=== PATIENT | male | born 1940 | race Caucasian/White ===

== ENCOUNTER 2022-01-01 14:45 | Inpatient (IN) | payer MEDICARE ==
[~2022-01-01] VITALS: Ht 170.2 cm; Wt 79.4 kg
--- NOTE | 2022-01-01 15:00 | NUR ---
BIB OPERATOR MAINTAINER FROM FACILITY,"ALTERED MENTAL STATUS AND POSSIBLE UTI", "HAS A WOUND ON THE HEAD" DUE TO AN UNWITNESSED FALL. BROUGHT IN VIA WHEELCHAIR, AAOX3, PLACED ON BED, BREATHING EVEN AND UNLABORED.
--- NOTE | 2022-01-01 15:12 | NUR ---
COVID SWAB OBTAINED AND SENT TO LAB
--- NOTE | 2022-01-01 15:30 | NUR ---
BLOOD DRAWN SENT TO LAB
--- NOTE | 2022-01-01 15:54 | NUR ---
PATIENT TAKEN TO CT VIA OTONIEL
[2022-01-01 16:00] LABS: CALCIUM, SERUM 8.4 mg/dL (8.5-10.1); CARBON DIOXIDE 30 mmol/L (21-32); CHLORIDE 102 mmol/L (98-107); CREATININE 1.3 mg/dL (0.6-1.3); GLUCOSE 210 mg/dL (74-106); POTASSIUM 4.9 mmol/L (3.5-5.1); SODIUM SERUM 136 mmol/L (136-145); UREA NITROGEN, BLOOD 17 mg/dL (7-18)
[2022-01-01 16:15] LABS: ALANINE AMINOTRANSFERASE 25 U/L (12-78); ALBUMIN 2.8 g/dL (3.4-5.0); ALKALINE PHOSPHATASE 131 U/L (46-116); ASPARTATE AMINOTRANSFERASE 37 U/L (15-37); BILIRUBIN,TOTAL 0.4 mg/dL (0.2-1.0); TOTAL PROTEIN, SERUM 8.3 g/dL (6.4-8.2)
[2022-01-01 16:27] LABS: BASOPHILS # (AUTO) 0.1 K/uL (0.0-0.2); BASOPHILS % (AUTO) 0.7 % (0.0-2.0); EOSINOPHILS % (AUTO) 3.4 % (0.0-6.0); HEMATOCRIT 37 % (39-51); HEMOGLOBIN 11.8 g/dL (13.5-17.5); LYMPHOCYTES # (AUTO) 3.1 K/uL (0.8-4.8); LYMPHOCYTES % (AUTO) 39.2 % (20.0-44.0); MEAN CORPUSCULAR HGB CONC 32 g/dl (31.0-36.0); MEAN CORPUSCULAR VOLUME 83 fL (80-96); MONOCYTES # (AUTO) 0.8 K/uL (0.1-1.30); MONOCYTES % (AUTO) 9.6 % (2.0-12.0); NEUTROPHILS # (AUTO) 3.8 K/uL (1.8-8.9); NEUTROPHILS % (AUTO) 47.1 % (43.0-81.0); PLATELET COUNT (AUTO) 186 K/uL (150-450); RED BLOOD CELL COUNT(AUTO) 4.41 MIL/uL (4.5-6.0)
[2022-01-01] MEDS ORDERED: PANT40TA49 PO (16:29)
[2022-01-01] MEDS ORDERED: AMLO2.5T4 PO (16:29)
[2022-01-01] MEDS ORDERED: ATOR40TA PO (16:29)
[2022-01-01] MEDS ORDERED: OLAN2.5T3 PO (16:29)
[2022-01-01] MEDS ORDERED: ASPI-1420 PO (16:29)
[2022-01-01] MEDS ORDERED: CLOP75TA15 PO (16:29)
[2022-01-01] MEDS ORDERED: TAMS-12 PO (16:29)
[2022-01-01] MEDS ORDERED: GABA-532 PO (16:29)
[2022-01-01] MEDS ORDERED: METF-440 PO (16:29)
[2022-01-01] MEDS ORDERED: GABA600T12 PO (16:29)
[2022-01-01] MEDS ORDERED: BACL5TAB PO (16:29)
[2022-01-01] MEDS ORDERED: ESCI10TA PO (16:29)
--- NOTE | 2022-01-01 16:38 | NUR ---
Earl farmer in [facility] - 01/01/22 at 1638 by ROSEMARIE SWAB FOR COVID19 SENT TO LAB
[2022-01-01] MEDS ORDERED: ACETAMINOPHEN 325 MG TABLET PO PRN (19:00)
[2022-01-01] MEDS ORDERED: MAGNESIUM HYDROXIDE 30 ML UDC PO PRN (19:00)
[2022-01-01] MEDS ORDERED: ZOLPIDEM TARTRATE 5 MG TABLET PO PRN (19:00)
[2022-01-01] MEDS ORDERED: Z GUARD REMEDY 4 OZ OINT TP PRN (19:00)
[2022-01-01] MEDS ORDERED: MAG HYDROX/AL HYDROX/SIMETH 30 ML UDC PO PRN (19:00)
[2022-01-01] MEDS ORDERED: ONDANSETRON HCL/PF 4 MG/2 ML VIAL IVP PRN (19:00)
--- NOTE | 2022-01-01 19:28 | NUR ---
ECHOCARDIOGRAM TECH IS AT BEDSIDE
[2022-01-01] MEDS: ENOXAPARIN SODIUM 40 MG/0.4 ML DISP.SYRIN SQ SCH (19:35)
--- NOTE | 2022-01-01 20:50 | NUR ---
MRSA SWAB COLLECTED AND SENT TO LAB. PATIENT'S BELONGINGS LIST DONE.
--- NOTE | 2022-01-01 21:43 | NUR ---
REPORT GIVEN TO RORO LEBLANC [id number] FOR FARIBA
--- NOTE | 2022-01-01 21:50 | NUR ---
RN NOTES RECEIVED PT AWAKE FROM ER AT RM 309-2 WITH OTONIEL.ON RM AIR LISSY WILL NO SIGN SOB/DISTRESS NOTED.IV SITE RIGHT WRIST G22 PATENT AND INTACT.NO COMPLAINE OF PAIN/DISCOMFORT AT THIS TIME.REORIENT PT IN THE RM WITH VERBAL UNDERSTANDING WITH A LITTLE CONFUSION.SAFETY MEASURE IN PLACE.CALL LIGHT WITHIN REACH.WILL CONTINUE TO MONITOR.
[2022-01-02] VITALS (8 sets, daily range): BP systolic 117–157; BP diastolic 58–76
--- NOTE | 2022-01-02 06:53 | NUR ---
RN CLOSING NOTES PT IN BED SLEEPING BUT EASY TO AROUSED ON RM AIR LISSY WILL NO SIGN SOB/DISTRESS NOTED.IV SITE RIGHT WRIST G22 PATENT AND INTACT.ALL DUE MEDS GIVEN.NEEDS ATTENDED.SAFETY MEASURE IN PLACE.CALL LIGHT WITHIN REACH.WILL ENDORSED TO NEXT SHIFT.
[2022-01-02 07:02] LABS: BASOPHILS # (AUTO) 0.1 K/uL (0.0-0.2); BASOPHILS % (AUTO) 0.7 % (0.0-2.0); EOSINOPHILS % (AUTO) 3.1 % (0.0-6.0); HEMATOCRIT 35 % (39-51); HEMOGLOBIN 11.6 g/dL (13.5-17.5); LYMPHOCYTES # (AUTO) 2.6 K/uL (0.8-4.8); MEAN CORPUSCULAR HGB CONC 33 g/dl (31.0-36.0); MEAN CORPUSCULAR VOLUME 81 fL (80-96); MONOCYTES # (AUTO) 0.7 K/uL (0.1-1.30); MONOCYTES % (AUTO) 9.1 % (2.0-12.0); NEUTROPHILS # (AUTO) 4.4 K/uL (1.8-8.9); NEUTROPHILS % (AUTO) 54.1 % (43.0-81.0); PLATELET COUNT (AUTO) 180 K/uL (150-450); RED BLOOD CELL COUNT(AUTO) 4.33 MIL/uL (4.5-6.0)
[2022-01-02 07:08] LABS: CALCIUM, SERUM 8.7 mg/dL (8.5-10.1); CARBON DIOXIDE 28 mmol/L (21-32); CHLORIDE 101 mmol/L (98-107); CREATININE 1.2 mg/dL (0.6-1.3); GLUCOSE 158 mg/dL (74-106); MAGNESIUM 1.8 mg/dL (1.8-2.4); PHOSPHORUS 3.9 mg/dL (2.5-4.9); POTASSIUM 4.1 mmol/L (3.5-5.1); SODIUM SERUM 138 mmol/L (136-145); UREA NITROGEN, BLOOD 15 mg/dL (7-18)
[2022-01-02] MEDS ORDERED: PANTOPRAZOLE 40 MG TABLET.DR PO SCH (07:30)
--- NOTE | 2022-01-02 07:30 | NUR ---
TELE- RN OPENING NOTES RECEIVED PATIENT AWAKE IN BED IN NO ACUTE SIGNS OF DISTRESS. A/O X2. QUIET, CONFUSED AND CALMED AT THIS TIME. ABLE TO MAKE NEEDS KNOWN, DENIES PAIN OR ANY DISCOMFORTS. RESPIRATION EVEN AND UNLABORED ON ROOM AIR. TELE-MONITOR SHOWS NSR, HR 65, NO C/O CARDIAC DISTRESS VOICED AT THIS TIME. IV ACCESS ON RIGHT WRIST G#22 INTACT AND PATENT. SAFETY MEASURES IN PLACE: BED ON LOWEST LOCKED POSITION, SR-UP X2, BED ALARM ON AND CALL LIGHT WITHIN REACH. WILL CONTINUE TO MONITOR.
[2022-01-02 07:36] LABS: THYROID STIMULATING HORMONE 3.355 uIU/mL (0.358-3.74)
[2022-01-02] MEDS: ASPIRIN EC 81 MG TABLET.DR PO SCH (08:30)
[2022-01-02] MEDS: CLOPIDOGREL BISULFATE 75 MG TABLET PO SCH (08:31)
[2022-01-02] MEDS: BACLOFEN (10 MG) 10 MG TABLET PO SCH ×2 (08:31→16:06)
[2022-01-02] MEDS: ESCITALOPRAM OXALATE (10 MG) 10 MG TABLET PO SCH (08:31)
[2022-01-02] MEDS: TAMSULOSIN 0.4 MG CAP.SR.24H PO SCH ×2 (08:31→16:06)
[2022-01-02] MEDS: GABAPENTIN 300 MG CAPSULE PO SCH ×2 (08:31→16:06)
[2022-01-02] MEDS: ATORVASTATIN 40 MG TABLET PO SCH (08:31)
[2022-01-02] MEDS: METFORMIN 500 MG TABLET PO SCH ×2 (08:31→16:06)
[2022-01-02] MEDS: PANTOPRAZOLE 40 MG TABLET.DR PO SCH ×2 (08:32→16:07)
[2022-01-02] MEDS: AMLODIPINE BESYLATE 2.5 MG TABLET PO SCH (08:34)
--- NOTE | 2022-01-02 10:17 | NUR ---
WOUND CARE CONSULT: PT PRESENTS WITH BILATERAL LOWER LEG EXCORIATED AREAS WITHOUT DRAINAGE, LEFT HEEL CALLUS/SCAB AND OPEN WOUND TO TOP OF HEAD, PRESENT ON ADMISSION. RECOMMENDATIONS MADE FOR SKIN PROTECTION. DISCUSSED WITH NURSING STAFF. DR ABDULKADIR NEVILLE CALLED FOR SURGICAL CONSULT OF SCALP WOUND. MD IN AGREEMENT WITH PLAN OF CARE.
[2022-01-02] MEDS ORDERED: IV NS 0.9% 1,000 ML IV PRN (10:30)
--- NOTE | 2022-01-02 11:46 | NUR ---
RN NOTES ORTHOSTATIC BP DONE: LYING 126/72. SITTING 134/75, STANDING UN-ABLE TO GET, PT REFUSED TO STAND AND ALSO VERBALIZED THAT HE COULDN'T STAND.
[2022-01-02 12:11] LABS: THYROID STIMULATING HORMONE 3.38 uIU/mL (0.358-3.74)
[2022-01-02] MEDS: ENOXAPARIN SODIUM 40 MG/0.4 ML DISP.SYRIN SQ SCH (18:02)
--- NOTE | 2022-01-02 18:41 | NUR ---
TELE- RN CLOSING NOTES PATIENT IN BED WATCHING TV AT THIS TIME. HOB ELEVATED. A/O X2. ABLE TO COMMUNICATE VERBALLY, FORGETFUL AND CONFUSED ON AND OFF. PT RE-ORIENTED AND REDIRECTED PRN. ON ROOM AIR, RESPIRATION EVEN AND UNLABORED, NO SOB NOTED. TELE-MONITOR AT THIS TIME SHOWS NSR, HR 98, NO C/O CARDIAC DISTRESS VOICED. IV ACCESS ON RIGHT WRIST G#22 INTACT WITH IVF OF NS @ 100ML/HR INFUSING WELL, NO S/S OF INFILTRATION AT SITE NOTED. PT ASSISTED IN TURNING AND REPOSITIONINGS FROM SIDE TO SIDE Q 2HRS AND PRN. ALL NEEDS AND CARE PROVIDED WELL. FALL AND SAFETY MEASURES IN PLACED: BED ON LOWEST LOCKED POSITION, SR-UP X3, BED ALARM ON AND CALL LIGHT WITHIN REACH. WILL ENDORSE CONTINUITY OF CARE TO MANUFACTURING PLANT TECHNICIAN NURSE.
--- NOTE | 2022-01-02 19:30 | NUR ---
RN OPENING NOTE PATIENT IN BED, AWAKE. PATIENT IS ABLE TO MAKE NEEDS KNOWN. A/O X 2 AT THIS TIME. PATIENT ON RA, TOLERATING WELL, NO SOB OR RESPIRATORY DISTRESS. PATIENT'S TELE MONITOR READS ST 109 BPM. PATIENT HAS A R WRIST 22 G WITH NS @ 100 ML/HR. PATENT VERBALIZED THAT HE DOES NOT WANT THE IV FLUID. PATIENT STATES THAT HE DOESN'T NEED IT BECAUSE HE IS DRINKING A LOT OF WATER DESPITE EXPLAINING THE BENEFITS AND RISKS. WILL TRY AGAIN AT A LATER TIME. SAFETY MEASURES IN PLACE: BED LOCKED AND IN LOWEST POSITION, CALL LIGHT WITHIN REACH, SIDE RAILS UP. WILL MONITOR PATIENT CLOSELY.
[2022-01-02] MEDS: OLANZAPINE 2.5 MG TABLET PO SCH (21:47)
[2022-01-02] MEDS: GABAPENTIN 100 MG CAPSULE PO SCH (21:48)
[2022-01-03] VITALS: BP 105/51
[2022-01-03 04:00] VITALS: BP 146/66
[2022-01-03 06:40] LABS: BASOPHILS % (AUTO) 0.6 % (0.0-2.0); HEMATOCRIT 29 % (39-51); HEMOGLOBIN 9.9 g/dL (13.5-17.5); LYMPHOCYTES # (AUTO) 2.2 K/uL (0.8-4.8); LYMPHOCYTES % (AUTO) 29.7 % (20.0-44.0); MEAN CORPUSCULAR HGB CONC 34 g/dl (31.0-36.0); MEAN CORPUSCULAR VOLUME 79 fL (80-96); MONOCYTES # (AUTO) 0.7 K/uL (0.1-1.30); NEUTROPHILS # (AUTO) 4.4 K/uL (1.8-8.9); NEUTROPHILS % (AUTO) 58.7 % (43.0-81.0); PLATELET COUNT (AUTO) 169 K/uL (150-450); RED BLOOD CELL COUNT(AUTO) 3.69 MIL/uL (4.5-6.0); WHITE BLOOD COUNT (AUTO) 7.5 K/uL (4.3-11.0)
[2022-01-03 06:59] LABS: ALANINE AMINOTRANSFERASE 20 U/L (12-78); ALBUMIN 2.6 g/dL (3.4-5.0); ALKALINE PHOSPHATASE 127 U/L (46-116); ASPARTATE AMINOTRANSFERASE 19 U/L (15-37); BILIRUBIN,TOTAL 0.5 mg/dL (0.2-1.0); CALCIUM, SERUM 8.2 mg/dL (8.5-10.1); CARBON DIOXIDE 27 mmol/L (21-32); CHLORIDE 102 mmol/L (98-107); CREATININE 1.4 mg/dL (0.6-1.3); GLUCOSE 167 mg/dL (74-106); MAGNESIUM 1.8 mg/dL (1.8-2.4); PHOSPHORUS 4.2 mg/dL (2.5-4.9); POTASSIUM 4.1 mmol/L (3.5-5.1); SODIUM SERUM 137 mmol/L (136-145); TOTAL PROTEIN, SERUM 7.2 g/dL (6.4-8.2); UREA NITROGEN, BLOOD 20 mg/dL (7-18)
--- NOTE | 2022-01-03 07:29 | NUR ---
RN CLOSING NOTE PATIENT NOT IN ANY APPARENT DISTRESS, A/O X 3. IV ACCESS PATENT AND INTACT. STILL REFUSES IV FLUIDS. PATIENT STABLE ON RA, TOLERATING WELL. TELE MONITOR READS SR 89 BPM. SAFETY MEASURES IMPLEMENTED. ALL NEEDS MET AND ATTENDED. ALL ORDERS CARRIED OUT. ENDORSED TO DAY SHIFT NURSE FOR FARIBA.
--- NOTE | 2022-01-03 07:30 | NUR ---
RN NOTE RECEIVED PATIENT IN BED RESTING ALERT ORIENTED X2-3 VERBALLY RESPONSIVE ON ROOM AIR IV SITE IS INTACT NO FLUID,PATIENT REFUSES TO HAVE IV HYDRATION, SAFETY MEASURE IMPLEMENT BED IN LOW POSITION AND LOCKED,BED ALARM IS ON,HEAD OF THE BED ELEVATED,CALL LIGHT WITHIN REACH CONTINUE TO MONITOR.
[2022-01-03 08:00] VITALS: BP 128/73
[2022-01-03] MEDS: ASPIRIN EC 81 MG TABLET.DR PO SCH (09:04)
[2022-01-03] MEDS: ATORVASTATIN 40 MG TABLET PO SCH (09:04)
[2022-01-03] MEDS: AMLODIPINE BESYLATE 2.5 MG TABLET PO SCH (09:04)
[2022-01-03] MEDS: ESCITALOPRAM OXALATE (10 MG) 10 MG TABLET PO SCH (09:04)
[2022-01-03] MEDS: METFORMIN 500 MG TABLET PO SCH ×2 (09:04→17:10)
[2022-01-03] MEDS: PANTOPRAZOLE 40 MG TABLET.DR PO SCH ×2 (09:04→17:10)
[2022-01-03] MEDS: TAMSULOSIN 0.4 MG CAP.SR.24H PO SCH ×2 (09:05→17:10)
[2022-01-03] MEDS: GABAPENTIN 300 MG CAPSULE PO SCH ×2 (09:05→17:10)
[2022-01-03] MEDS: BACLOFEN (10 MG) 10 MG TABLET PO SCH ×2 (09:05→17:10)
[2022-01-03] MEDS: CLOPIDOGREL BISULFATE 75 MG TABLET PO SCH (09:06)
--- NOTE | 2022-01-03 12:00 | NUR ---
RN NOTE EDUCATED PATIENT HAVE IV HYDRATION HE REFUSED,EXPLAINED RISKS AND BENEFITS STILL REFUSED,MD NOTIFIED.CONTINUE TO MONITOR.
[2022-01-03 13:06] LABS: *SPE A/G RATIO 0.7 (0.7-1.7); *SPE ALPHA-1-GLOBULIN 0.3 g/dL (0.0-0.4); *SPE ALPHA-2-GLOBULIN 0.9 g/dL (0.4-1.0); *SPE BETA GLOBULIN 1.3 g/dL (0.7-1.3); *SPE M-SPIKE Not Observed g/dL (Not Observed)
--- NOTE | 2022-01-03 18:40 | NUR ---
RN NOTE PATIENT REMAINS ALERT ORIENTED X2-3 VERBALLY RESPONSIVE ON ROOM AIR NO SOB NOT ACUTE DISTRESS NOTED,ALL DUE MEDS GIVEN MD ORDERED KEPT CLEAN AND DRY ALL THE TIME,KEPT COMFORTABLE,KEPT HEAD OF THE BED ELEVATED ENDORSE NEXT COMING SHIFT FOR CONTINUATION OF CARE.
--- NOTE | 2022-01-03 19:30 | NUR ---
LABORER CONSTRUCTION OR LEAK GANG OPENING NOTE RECEIVED PT AWAKE IN BED. A/O X2. PT STABLE ON ROOM AIR. NO SOB OR S/S OF RESPIRATORY DISTRESS. BREATHING EVEN AND UNLABORED. ON EXTERNAL VESSEL ORDINARY SEAMAN READING SR. IV ACCESS R WRIST 22 GAUGE, PT STILL REFUSING IVF AT THIS TIME. SAFETY PRECAUTIONS IN PLACE. BED IN LOWEST LOCKED POSITION, HOB ELEVATED, SIDE RAILS UP X3, AND CALL LIGHT AND TABLE WITHIN REACH. ALL NEEDS MET AT THIS TIME.
[2022-01-03] MEDS: ENOXAPARIN SODIUM 40 MG/0.4 ML DISP.SYRIN SQ SCH (19:53)
[2022-01-03 20:00] VITALS: BP 134/69
[2022-01-03] MEDS: OLANZAPINE 2.5 MG TABLET PO SCH (21:03)
[2022-01-03] MEDS: GABAPENTIN 100 MG CAPSULE PO SCH (21:03)
[2022-01-04] VITALS: BP 117/66
[2022-01-04 05:00] VITALS: BP 135/79
--- NOTE | 2022-01-04 05:21 | NUR ---
RN NOTE PT REFUSING TO TAKE ORTHOSTATICS AT THIS TIME. EXPLAINED RISKS AND BENEFITS. PT STILL REFUSED.
[2022-01-04 06:23] LABS: BASOPHILS % (AUTO) 0.6 % (0.0-2.0); EOSINOPHILS % (AUTO) 2.4 % (0.0-6.0); HEMATOCRIT 32 % (39-51); HEMOGLOBIN 10.8 g/dL (13.5-17.5); LYMPHOCYTES # (AUTO) 2.9 K/uL (0.8-4.8); LYMPHOCYTES % (AUTO) 40.1 % (20.0-44.0); MEAN CORPUSCULAR HGB CONC 33 g/dl (31.0-36.0); MEAN CORPUSCULAR VOLUME 80 fL (80-96); MONOCYTES # (AUTO) 0.7 K/uL (0.1-1.30); MONOCYTES % (AUTO) 9.2 % (2.0-12.0); NEUTROPHILS # (AUTO) 3.5 K/uL (1.8-8.9); NEUTROPHILS % (AUTO) 47.7 % (43.0-81.0); PLATELET COUNT (AUTO) 159 K/uL (150-450); RED BLOOD CELL COUNT(AUTO) 4.04 MIL/uL (4.5-6.0); WHITE BLOOD COUNT (AUTO) 7.3 K/uL (4.3-11.0)
--- NOTE | 2022-01-04 06:50 | NUR ---
DEVELOPMENT DIRECTOR CLOSING NOTE PT AWAKE IN BED. A/O X2. PT STABLE ON ROOM AIR. NO SOB OR S/S OF RESPIRATORY DISTRESS. BREATHING EVEN AND UNLABORED. ON EXTERNAL POSTDOCTORAL SCIENTIST READING SR 63 BPM. IV ACCESS R WRIST 22 GAUGE, PT STILL REFUSING IVF AT THIS TIME. ALL DUE MEDS GIVEN ORDERED. PT NOTED WITH ABDOMINAL DISTENTION. BLADDER SCANNER SHOWED 900 ML IN BLADDER. LEFT MESSAGE FOR ROUND BONER LULA, STILL WAITING FOR RESPONSE. WILL ENDORSE TO ONCOMING NURSE FOR FOLLOW UP ON ORDERS. SAFETY PRECAUTIONS IN PLACE AT ALL TIMES. BED IN LOWEST LOCKED POSITION, HOB ELEVATED, SIDE RAILS UP X3, AND CALL LIGHT AND TABLE WITHIN REACH. ALL NEEDS MET AT THIS TIME AND WILL ENDORSE TO ONCOMING NURSE FOR FARIBA.
[2022-01-04 07:01] LABS: ALANINE AMINOTRANSFERASE 32 U/L (12-78); ALBUMIN 2.8 g/dL (3.4-5.0); ALKALINE PHOSPHATASE 129 U/L (46-116); ASPARTATE AMINOTRANSFERASE 34 U/L (15-37); BILIRUBIN,TOTAL 0.4 mg/dL (0.2-1.0); CALCIUM, SERUM 8.3 mg/dL (8.5-10.1); CARBON DIOXIDE 27 mmol/L (21-32); CHLORIDE 103 mmol/L (98-107); CREATININE 1.5 mg/dL (0.6-1.3); GLUCOSE 165 mg/dL (74-106); MAGNESIUM 2.1 mg/dL (1.8-2.4); PHOSPHORUS 3.6 mg/dL (2.5-4.9); POTASSIUM 4.1 mmol/L (3.5-5.1); SODIUM SERUM 138 mmol/L (136-145); TOTAL PROTEIN, SERUM 7.8 g/dL (6.4-8.2); UREA NITROGEN, BLOOD 27 mg/dL (7-18)
--- NOTE | 2022-01-04 07:30 | NUR ---
RN NOTE DR. EASTMAN CONTACTED REGARDING DISTENDED BLADDER AND 900CC SEEN ON BLADDER SCAN BY SR. LOGISTICS ANALYST DAVID LEBLANC.
--- NOTE | 2022-01-04 08:08 | NUR ---
RN NOTE UNABLE TO INSERT SOLORIO CATH DUE TO OBSTRUCTION. PT IS REPORTING SEVERE BLADDER PAIN. DR. EASTMAN NOTIFIED.
[2022-01-04 08:46] VITALS: BP 133/86
[2022-01-04] MEDS: AMLODIPINE BESYLATE 2.5 MG TABLET PO SCH (08:46)
[2022-01-04] MEDS: CLOPIDOGREL BISULFATE 75 MG TABLET PO SCH (08:46)
[2022-01-04] MEDS: ESCITALOPRAM OXALATE (10 MG) 10 MG TABLET PO SCH (08:46)
[2022-01-04] MEDS: ATORVASTATIN 40 MG TABLET PO SCH (08:46)
[2022-01-04] MEDS: ASPIRIN EC 81 MG TABLET.DR PO SCH (08:46)
[2022-01-04] MEDS: BACLOFEN (10 MG) 10 MG TABLET PO SCH (08:46)
[2022-01-04] MEDS: GABAPENTIN 300 MG CAPSULE PO SCH (08:46)
[2022-01-04] MEDS: PANTOPRAZOLE 40 MG TABLET.DR PO SCH (08:47)
[2022-01-04] MEDS: METFORMIN 500 MG TABLET PO SCH (08:47)
[2022-01-04] MEDS: TAMSULOSIN 0.4 MG CAP.SR.24H PO SCH (08:47)
--- NOTE | 2022-01-04 10:44 | NUR ---
RN NOTE COUDE CATHETER 16F INSERTED.
--- NOTE | 2022-01-04 15:23 | NUR ---
RN NOTE REPORT GIVEN TO ANGELA LEBLANC AT FACILITY FOR F[facility]IBA.
--- NOTE | 2022-01-04 17:10 | NUR ---
RN NOTE PATIENT DISCHARGED PER ORDER. LEFT FACILITY WITH EMT. STABLE ON RA. SOLORIO CATHETER LEFT IN PLACE PER MD REQUEST DUE TO SEVERE BPH AND NEED TO FOLLOW UP WITH UROLOGIST, SNF AWARE. IV LINE REMOVED.
== END 2022-01-04 17:00 | DRG 312 ==
LOC: ER 14:51 → EDSEX 14:51 → TELE 21:02
PROVIDERS: ADMIT Student in an Organized Health Care Education/Training Program
DX: I95.1 Orthostatic hypotension (principal); E44.0 Moderate protein-calorie malnutrition; W19.XXXA Unspecified fall, initial encounter; Y92.89 Other specified places as the place of occurrence of the external cause; I25.10 Atherosclerotic heart disease of native coronary artery without angina pectoris; Z20.822 Contact with and (suspected) exposure to COVID-19; E78.00 Pure hypercholesterolemia, unspecified; Z88.8 Allergy status to other drugs, medicaments and biological substances; Z91.040 Latex allergy status; Z79.84 Long term (current) use of oral hypoglycemic drugs; Z79.82 Long term (current) use of aspirin; Z79.899 Other long term (current) drug therapy; Z79.02 Long term (current) use of antithrombotics/antiplatelets; N40.0 Benign prostatic hyperplasia without lower urinary tract symptoms; D64.9 Anemia, unspecified; I10 Essential (primary) hypertension; F03.90 Unspecified dementia, unspecified severity, without behavioral disturbance, psychotic disturbance, mood disturbance, and anxiety; Z91.19 Patient's noncompliance with other medical treatment and regimen; R73.9 Hyperglycemia, unspecified
CPT/HCPCS: 36415; 70450-TC; 71045-TC; 72125-TC; 72170-TC; 80048-TC; 80053-TC; 80061-TC; 80076-TC; 82728-TC; 83540-TC; 83605-TC; 83735-TC; 84100-TC; 84155; 84165; 84439-TC; 84443-TC; 84484-TC; 85025-TC; 85730-TC; 87081-TC; 93307-TC; 97116-TC; 97530-TC; A6403; C9803; G0378; J1650; J7030